=== PATIENT | female | born 1950 ===

== ENCOUNTER 2020-07-24 09:32 | Outpatient (CLI) | payer MEDICARE, OTHER ==
[~2020-07-24] VITALS: Ht 154.9 cm; Wt 76.7 kg
[2020-07-24 09:51] VITALS: BP 141/75
[2020-07-24] MEDS ORDERED: PANTOPRAZOLE SO40 MG ORAL (13:15)
[2020-07-24] MEDS ORDERED: CARTIA XT180 MG ORAL (13:15)
== END 2020-07-24 13:02 | disposition home or self-care (01) ==
LOC: PAN 09:32
DX: R10.9 Unspecified abdominal pain (principal)
CPT/HCPCS: 99203